=== PATIENT | female | born 2000 | race Two or more races ===

== ENCOUNTER 2021-02-11 14:59 | Emergency (ER) | payer OTHER ==
[~2021-02-11] VITALS: Ht 152.4 cm; Wt 49.0 kg
[2021-02-11] MEDS ORDERED: ORASEP SPRAY30 ML MM (18:40)
[2021-02-11] MEDS ORDERED: ZITHROMAX500 MG PO (18:40)
== END 2021-02-11 20:51 | disposition home or self-care (01) ==
LOC: EMR PED 14:59 → ER 15:19 → EMR PED 15:19
DX: R07.0 Pain in throat (principal); Z03.818 Encounter for observation for suspected exposure to other biological agents ruled out

== ENCOUNTER 2023-02-25 08:04 | Emergency (ER) | payer OTHER ==
[~2023-02-25] VITALS: Ht 152.4 cm; Wt 49.9 kg
[~2023-02-25 08:04] MED LIST: ORASEP SPRAY30 ML MM; ZITHROMAX500 MG PO
== END 2023-02-25 09:02 | disposition home or self-care (01) ==
LOC: ER 08:04
DX: R51.9 Headache, unspecified (principal)